=== PATIENT | male | born 1945 | race Caucasian/White ===

== ENCOUNTER 2018-06-02 17:03 | Emergency (ER) | payer MEDICARE, SELFPAY ==
[2018-06-02 17:22] VITALS: BP 113/66; PULSE 88; RESP 16; TEMP 36.8; O2SAT 97; BMI 25.4
--- NOTE | 2018-06-02 17:35 | DI.CT.S_ITS ---
PROCEDURE: CT HEAD/BRAIN WO CON INDICATIONS: confusion TECHNIQUE: Noncontrast 4.5 mm thick angled axial sections acquired from the foramen magnum to the vertex, with coronal and sagittal reformats. For radiation dose reduction, the following was used: automated exposure control, adjustment of mA and/or kV according to patient size. COMPARISON: None. FINDINGS: Image quality: Excellent. CSF spaces: Basal cisterns are patent. No extra-axial fluid collections. The ventricles are symmetric in size and shape. Brain: There is a high density circumscribed mass within the left frontal lobe which measures 3.4 x 3.8 cm in diameter. There is marked surrounding cerebral edema with effacement of the sulci. There is approximately 7 mm rightward midline shift with entrapment of the anterior horn of the left lateral ventricle and early subfalcine herniation. There is likely a smaller more superior 1.3 cm diameter mass lesion within the left frontal lobe as well (series 2, image 21). The basal cisterns are open. No intracranial or intraventricular hemorrhage. No other mass lesions visualized. Skull and face: Calvarium and visualized facial bones appear intact, without suspicious lesions. Sinuses: Visualized sinuses and mastoids are clear. IMPRESSION: 1. 2 left frontal extra cranial mass lesions with extensive cerebral edema, rightward midline shift, subfalcine herniation, and entrapment of the left lateral ventricle. Emergent neurology or neurosurgery consultation recommended. This finding was discussed with Dr. Carbajal at 6:04 PM on 06/02/18. Dictated by: Brunilda Parson M.D. on 06/02/2018 at 18:00 Approved by: Brunilda Parson M.D. on 06/02/2018 at 18:04
[2018-06-02 18:31] LABS: Add Manual Diff / Slide Review NO; Basophils Percent Auto 1.3 % (0-2); Eosinophils Percent Auto 2.5 % (2-4); Hematocrit 38.2 % (41-53); Hemoglobin 12.8 g/dL (13.5-17.5); Lymphocytes Percent Auto 22.6 % (25-40); Mean Corpuscular HGB Conc 33.6 % (30-36); Mean Corpuscular Hemoglobin 31.1 PG (26-34); Mean Corpuscular Volume 92.4 fL (80-100); Monocytes Percent Auto 8.3 % (3-14); Neutrophils Absolute Auto 6900 /uL (3000-5900); Neutrophils Percent Auto 65.3 % (50-75); Platelet Count 290 X10^3/uL (150-400); Red Blood Cell Count 4.13 X10^6/uL (4.5-5.9); Red Cell Distribution Width 13.8 % (11.6-14.8); White Blood Cell Count 10.6 X10^3/uL (4.5-11.0)
--- NOTE | 2018-06-02 18:34 | ED_ITS ---
HPI - Altered Mental Status General Chief Complaint: Altered Mental Status Stated Complaint: MENTAL CONFUSION Time Seen by Provider: 06/02/18 18:28 Source: patient and family History of Present Illness HPI narrative: Patient is a 72-year-old male presenting with increased confusion. states that it has been cycling for a number of years over last 2 weeks progressively gotten worse. It definitely over the last 3 days. She says that he has just been more confused he has not had any fever, Or infectious symptoms. He has some difficulty talking. He has been ambulating and using all extremities okay. He has no complaints. he has a history of melanoma between 4-6 years ago according to the . He was evaluated at [place] last year and had a head CT at that time but she cannot remember what the reason was. MD complaint: altered mental status and confusion Related Data Home Medications Medication Instructions Recorded Confirmed amlodipine [Norvasc] 5 mg PO QDAY #0 07/28/16 06/02/18 chlorhexidine gluconate [Periogard] 15 ml PO #0 07/28/16 cyanocobalamin (vitamin B-12) #0 07/28/16 furosemide 80 mg QDAY #0 07/28/16 06/02/18 lisinopril 40 mg PO QDAY #0 07/28/16 prednisolone acetate 1 drp EYE-LEFT BID 06/02/18 06/02/18 Previous Rx's Medication Instructions Recorded albuterol sulfate [Ventolin HFA] 2 puff INH Q4HP PRN #1 inh 07/28/16 Allergies Allergy/AdvReac Type Severity Reaction Status Date / Time Stkllbt-Kxx-Nir Reductase Allergy Unknown Unverified 11/27/17 12:40 Inhibitor [[id number] REDUCTASE INHIBITOR] Review of Systems Review of Systems All systems reviewed & are unremarkable except as noted in HPI and below Constitutional Denies frequent falls, Denies headache(s) and Denies lethargy Eyes Denies blurry vision and Denies change in vision ENT Ears, Nose, Mouth, and Throat: Denies facial pain, Denies headache(s) and Denies nose pain Cardiovascular Denies chest pain, Denies irregular heart rhythm, Denies lightheadedness, Denies palpitations, Denies dyspnea, Denies dyspnea on exertion and Denies orthopnea Respiratory Denies cough, Denies dyspnea, Denies dyspnea on exertion and Denies wheezing Gastrointestinal Gastrointestinal: Denies abdominal pain, Denies change in bowel habits, Denies diarrhea, Denies nausea and Denies vomiting Musculoskeletal Denies back pain, Denies muscle weakness, Denies numbness and Denies tingling Integumentary/Breasts Denies pruritus, Denies erythema, Denies rash and Denies wounds Neurologic Reports as per HPI, Denies frequent falls, Denies headache(s), Denies lack of coordination, Denies numbness and Denies tingling Endocrine Denies palpitations Allergic/Immunologic Denies wheezing Exam Initial Vital Signs Initial Vital Signs: Vital Signs Temperature 98.2 F 06/02/18 17:22 Pulse Rate 88 06/02/18 17:22 Respiratory Rate 16 06/02/18 17:22 Blood Pressure 113/66 06/02/18 17:22 Pulse Oximetry 97 06/02/18 17:22 Const General: cooperative and frail appearing Nutritional Appearance: well nourished Orientation: alert, awake and confused Eyes Pupils: PERRL, not dilated and not fixed EOM: EOM intact bilaterally Direct ophthalmoscopy: normal light reflex Neck Neck: normal visual inspection and full ROM Chest Chest: normal inspection of the chest Resp Effort & Inspection: normal respiratory effort, able to speak in complete sentences, no respiratory distress and no use of accessory muscles Auscultation: clear to auscultation bilaterally, no rales, no rhonchi and no wheezes Cardio Rate: regular rate Rhythm: regular rhythm Heart Sounds: S1 normal, S2 normal and rub GI Inspection: non-distended Palpation: soft, no hepatosplenomegaly, No guarding, No pulsatile mass and No tender Auscultation: normal bowel sounds Neuro General: alert, awake and oriented x3 Cranial Nerves: CN's II-XI intact bilaterally Cognition: normal cognition Speech: speech normal Motor: muscle tone normal throughout Sensory Exam: no sensory deficits noted Course Orders Ordered: ED Orders 06/02/18 18:21 Complete Blood Count AUTO DIFF Stat Comprehensive Metabolic Panel Stat Partial Thromboplastin Time Stat Prolactin Stat Prothrombin Time INR Stat Thyroid Stimulating Hormone Stat Troponin I Stat Discontinued Medications Dexamethasone (Decadron) 10 mg IV NOW ONE Stop: 06/02/18 18:32 Last Admin: 06/02/18 19:26 Dose: 10 mg Levetiracetam 1,000 mg/ Sodium (Chloride) 110 mls @ 440 mls/hr IV NOW ONE Stop: 06/02/18 19:32 Last Infusion: 06/02/18 21:22 Dose: 0 mls/hr Admin: 06/02/18 20:06 Dose: 440 mls/hr Vital Signs - 8 hr 06/02/18 20:59 06/02/18 22:42 Pulse Rate 69 56 L Respiratory Rate 15 13 Blood Pressure [Left Arm] 124/56 L 141/56 H Pulse Oximetry 96 98 MDM - Altered Mental Status Lab Data Attestation: I reviewed the patient's lab results. Result diagrams: 06/02/18 18:21 06/02/18 18:21 Lab Results 06/02/18 06/02/18 06/02/18 Range/Units 18:21 18:21 18:21 WBC 10.6 (4.5-11.0) X10^3/uL RBC 4.13 L (4.5-5.9) X10^6/uL Hgb 12.8 L (13.5-17.5) g/dL Hct 38.2 L (41-53) % MCV 92.4 (80-100) fL MCH 31.1 (26-34) PG MCHC 33.6 (30-36) % RDW 13.8 (11.6-14.8) % Plt Count 290 (150-400) X10^3/uL Neut % (Auto) 65.3 (50-75) % Lymph % (Auto) 22.6 L (25-40) % Canyon % (Auto) 8.3 (3-14) % Eos % (Auto) 2.5 (2-4) % Baso % (Auto) 1.3 (0-2) % Neut # (Auto) 6900 H (0333-1382) /uL PT Cancelled INR Cancelled APTT (26.4-36.2) SECONDS Sodium Cancelled Potassium Cancelled Chloride Cancelled Carbon Dioxide Cancelled BUN Cancelled Creatinine Cancelled Estimated GFR Cancelled BUN/Creatinine Ratio Cancelled Glucose Cancelled Calcium Cancelled Total Bilirubin (0.2-1.3) mg/dL AST (17-59) IU/L ALT (21-72) IU/L Alkaline Phosphatase (38-126) U/L Troponin I (0.01-0.034) ng/mL Total Protein (6.3-8.2) g/dL Albumin (3.5-5.0) g/dL Globulin (1.7-4.1) g/dL Albumin/Globulin Ratio (1.0-2.8) TSH (0.47-4.68) uIU/mL Prolactin (3.7-17.9) ng/mL 06/02/18 06/02/18 06/02/18 Range/Units 18:21 18:21 18:21 WBC (4.5-11.0) X10^3/uL RBC (4.5-5.9) X10^6/uL Hgb (13.5-17.5) g/dL Hct (41-53) % MCV (80-100) fL MCH (26-34) PG MCHC (30-36) % RDW (11.6-14.8) % Plt Count (150-400) X10^3/uL Neut % (Auto) (50-75) % Lymph % (Auto) (25-40) % Canyon % (Auto) (3-14) % Eos % (Auto) (2-4) % Baso % (Auto) (0-2) % Neut # (Auto) (6767-8838) /uL PT 12.6 INR 1.2 APTT 31 (26.4-36.2) SECONDS Sodium 144 Potassium 3.8 Chloride 105 Carbon Dioxide 29 BUN 25 H Creatinine 1.40 H Estimated GFR 49.5 L BUN/Creatinine Ratio 17.9 Glucose 98 Calcium 8.9 Total Bilirubin 0.4 (0.2-1.3) mg/dL AST 17 (17-59) IU/L ALT 25 (21-72) IU/L Alkaline Phosphatase 61 (38-126) U/L Troponin I < 0.012 (0.01-0.034) ng/mL Total Protein 7.7 (6.3-8.2) g/dL Albumin 4.0 (3.5-5.0) g/dL Globulin 3.7 (1.7-4.1) g/dL Albumin/Globulin Ratio 1.1 (1.0-2.8) TSH (0.47-4.68) uIU/mL Prolactin 10.8 (3.7-17.9) ng/mL 06/02/18 Range/Units 18:21 WBC (4.5-11.0) X10^3/uL RBC (4.5-5.9) X10^6/uL Hgb (13.5-17.5) g/dL Hct (41-53) % MCV (80-100) fL MCH (26-34) PG MCHC (30-36) % RDW (11.6-14.8) % Plt Count (150-400) X10^3/uL Neut % (Auto) (50-75) % Lymph % (Auto) (25-40) % Canyon % (Auto) (3-14) % Eos % (Auto) (2-4) % Baso % (Auto) (0-2) % Neut # (Auto) (5169-5933) /uL PT INR APTT (26.4-36.2) SECONDS Sodium Potassium Chloride Carbon Dioxide BUN Creatinine Estimated GFR BUN/Creatinine Ratio Glucose Calcium Total Bilirubin (0.2-1.3) mg/dL AST (17-59) IU/L ALT (21-72) IU/L Alkaline Phosphatase (38-126) U/L Troponin I (0.01-0.034) ng/mL Total Protein (6.3-8.2) g/dL Albumin (3.5-5.0) g/dL Globulin (1.7-4.1) g/dL Albumin/Globulin Ratio (1.0-2.8) TSH 3.31 (0.47-4.68) uIU/mL Prolactin (3.7-17.9) ng/mL Urine Dip Bedside Urine Glucose Negative Bedside Urine Bilirubin - Negative Bedside Urine Ketone - Negative Urine Specific [place] 1.020 Bedside Urine Occult Blood - Negative Bedside Urine pH 6.0 Bedside Urine Protein - Negative Bedside Urine Urobilinogen - Negative Bedside Urine Nitrite - Negative Bedside Urine Leukocytes - Negative Esterase Imaging Data CT scan - head: Radiologist's impression: PROCEDURE: CT HEAD/BRAIN WO CON INDICATIONS: confusion TECHNIQUE: Noncontrast 4.5 mm thick angled axial sections acquired from the foramen magnum to the vertex, with coronal and sagittal reformats. For radiation dose reduction, the following was used: automated exposure control, adjustment of mA and/or kV according to patient size. COMPARISON: None. FINDINGS: Image quality: Excellent. CSF spaces: Basal cisterns are patent. No extra-axial fluid collections. The ventricles are symmetric in size and shape. Brain: There is a high density circumscribed mass within the left frontal lobe which measures 3.4 x 3.8 cm in diameter. There is marked surrounding cerebral edema with effacement of the sulci. There is approximately 7 mm rightward midline shift with entrapment of the anterior horn of the left lateral ventricle and early subfalcine herniation. There is likely a smaller more superior 1.3 cm diameter mass lesion within the left frontal lobe as well (series 2, image 21). The basal cisterns are open. No intracranial or intraventricular hemorrhage. No other mass lesions visualized. Skull and face: Calvarium and visualized facial bones appear intact, without suspicious lesions. Sinuses: Visualized sinuses and mastoids are clear. IMPRESSION: 1. 2 left frontal extra cranial mass lesions with extensive cerebral edema, rightward midline shift, subfalcine herniation, and entrapment of the left lateral ventricle. Emergent neurology or neurosurgery consultation recommended. This finding was discussed with Dr. Carbajal at 6:04 PM on 06/02/18. Dictated by: Brunilda Parson M.D. on 06/02/2018 at 18:00 Approved by: Brunilda Parson M.D. on 06/02/2018 at 18:04 [facility] Narrative Medical decision making narrative: 7:[address] Beck Neuro surgery, has reviewed CT himself agrees with dexamethasone and Beatris Whittington, apprentice instrument technician at [facility] has been updated patient's symptoms test results come [place] call with Neurosurgery and myself accepts patient for transfer. 10:15 p.m. patient was assigned room about an hour ago. Transport is still 2 hr out and will not arrive to [facility] until 2 or 3:00 a.m.. I have seen evaluated patient and reassessed. He is sleeping easily arousable supervisor chemical strength equal bilaterally. Pupils are equal and reactive. Due to prolonged transport time an early signs of herniation on CT I discussed with transport by airlift. She is agreeable to have airlift insurance. Patient does remain stable at this time. Discharge Plan Departure Patient Disposition: [facility] Clinical Impression: Brain mass Discharge Date/Time: 06/02/18 23:12 Interventions: ED Discharge Assessment Last Done: 06/02/18 23:11 Prescriptions: No Action furosemide 80 MG tablet 80 mg QDAY Qty: 0 RF: 0 lisinopril 40 MG tablet 40 mg PO QDAY Qty: 0 RF: 0 chlorhexidine gluconate [Periogard] 473 ML mouthwash 15 ml PO Qty: 0 RF: 0 cyanocobalamin (vitamin B-12) 1,000 MCG tablet extended release Qty: 0 RF: 0 amlodipine [Norvasc] 5 MG tablet 5 mg PO QDAY Qty: 0 RF: 0 albuterol sulfate [Ventolin HFA] 90 MCG/PUFF HFA aerosol inhaler 2 puff INH Q4HP PRNQty: 1 RF: 0 prednisolone acetate 1 % drops,suspension 1 drp EYE-LEFT BID RF: 0
[2018-06-02 18:44] LABS: INR 1.2 (0.9-1.3); Prothrombin Time 12.6 SECONDS (10.1-12.7)
[2018-06-02 18:46] LABS: PTT Partial Thromboplastin Tim 31 SECONDS (26.4-36.2)
[2018-06-02 18:51] LABS: Alanine Aminotransferase 25 IU/L (21-72); Albumin Globulin Ratio 1.1 (1.0-2.8); Alkaline Phosphatase 61 U/L (38-126); Aspartate Aminotransferase 17 IU/L (17-59); BUN Creatinine Ratio 17.9 (6-22); Bilirubin Total 0.4 mg/dL (0.2-1.3); Blood Urea Nitrogen 25 mg/dL (9-20); Calcium 8.9 mg/dL (8.4-10.2); Carbon Dioxide 29 mmol/L (22-32); Chloride 105 mmol/L (98-107); Estimated Glomerular Filt Rate 49.5 mL/min (>60); Globulin 3.7 g/dL (1.7-4.1); Glucose 98 mg/dL (80-110); HEMOLYSIS < 15 (0-50); Potassium 3.8 mmol/L (3.4-5.1); Sodium 144 mmol/L (137-145); Total Protein 7.7 g/dL (6.3-8.2)
[2018-06-02 19:02] LABS: Troponin I < 0.012 ng/mL (0.01-0.034)
[2018-06-02 19:07] LABS: Prolactin 10.8 ng/mL (3.7-17.9)
[2018-06-02] MEDS: DEXAMETHASONE 10 MG/ML VIAL IV (19:26)
[2018-06-02 19:32] LABS: Thyroid Stimulating Hormone 3.31 uIU/mL (0.47-4.68)
[2018-06-02] MEDS: levETIRAcetam 1,000 MG in SODIUM CHLORIDE 0.9% 100 ML 440 ML IV (20:06)
--- NOTE | 2018-06-02 20:17 | PC.NURSE ---
Pt's came to RN station and stated patient was not opening his left eye. I entered patient's room and he was using his left eye about every third blink. Pt appeared to be uncomfortable, I adjusted lights in the room. pt stated it was better but is still only opening his eye every 3rd blink. Provider Carroll notified.
[2018-06-02 20:59] VITALS: BP 124/56; PULSE 69; RESP 15; O2SAT 96
[2018-06-02 22:42] VITALS: BP 141/56; PULSE 56; RESP 13; O2SAT 98
== END 2018-06-02 23:12 | disposition short-term general hospital (02) ==
PROVIDERS: Emergency Medicine; Emergency Provider Emergency Medicine
DX: G93.9 Disorder of brain, unspecified (principal)
CPT/HCPCS: 36591; 70450; 80053; 81003; 84146; 84443; 84484; 85025; 85610; 85730; 96365; 96375; 99284; 99291; J1100; J1953

== ENCOUNTER 2018-08-19 19:07 | Emergency (ER) | payer MEDICARE, SELFPAY ==
[2018-08-19 19:15] VITALS: BP 149/86; PULSE 78; RESP 20; TEMP 36.5; O2SAT 97
--- NOTE | 2018-08-19 19:22 | ED.WOUNDLAC ---
HPI - Wound/Laceration <LUPE Winston - Last Filed: 08/19/18 22:07> General Chief Complaint: Wound/Laceration Stated Complaint: HIT HEAD AND OPENED SUTURES UP Time Seen by Provider: 08/19/18 19:13 Source: patient Mode of arrival: ambulatory Limitations: no limitations History of Present Illness HPI narrative: 73-year-old male with history of having a brain tumor as everyday smoke here for complaint of a opening of the laceration to the top of his scalp. In May patient had surgery at [facility] to remove a brain tumor. He denies any complications with the surgery site since this timeframe. He reports today he was on [place] he accidentally bumped his head on the top of the ceiling of the boat and caused a a separation of the incision site. He denies any loss of consciousness. He denies any nausea or vomiting. Bleeding is controlled. Related Data Home Medications Medication Instructions Recorded Confirmed amlodipine [Norvasc] 5 mg PO QDAY #0 07/28/16 06/02/18 chlorhexidine gluconate [Periogard] 15 ml PO #0 07/28/16 cyanocobalamin (vitamin B-12) #0 07/28/16 furosemide 80 mg QDAY #0 07/28/16 06/02/18 lisinopril 40 mg PO QDAY #0 07/28/16 prednisolone acetate 1 drp EYE-LEFT BID 06/02/18 06/02/18 Previous Rx's Medication Instructions Recorded albuterol sulfate [Ventolin HFA] 2 puff INH Q4HP PRN #1 inh 07/28/16 Allergies Allergy/AdvReac Type Severity Reaction Status Date / Time Pfdyakt-Rqc-Upq Reductase Allergy Unknown Unverified 11/27/17 12:40 Inhibitor [[id number]-MRN REDUCTASE INHIBITOR] Review of Systems <LUPE Winston - Last Filed: 08/19/18 22:07> Constitutional Denies chills, Denies fever(s), Denies lethargy and Denies weakness Eyes Denies change in vision, Denies eye discharge, Denies irritation and Denies loss of vision ENT Ears, Nose, Mouth, and Throat: Denies change in voice, Denies neck pain and Denies sore throat Cardiovascular Denies chest pain, Denies irregular heart rhythm, Denies lightheadedness, Denies palpitations, Denies dyspnea, Denies dyspnea on exertion and Denies orthopnea Respiratory Denies cough, Denies dyspnea, Denies dyspnea on exertion and Denies wheezing Gastrointestinal Gastrointestinal: Denies abdominal pain, Denies change in bowel habits, Denies diarrhea, Denies nausea and Denies vomiting Genitourinary Denies hematuria, Denies flank pain, Denies urinary incontinence and Denies urinary urgency Musculoskeletal Denies neck pain Integumentary/Breasts Denies pruritus, Denies erythema, Denies rash and Denies wounds Neurologic Denies confusion, Denies loss of vision and Denies weakness Comments: Head injury and lesion to incision site top of scalp Psychiatric Denies anxiety, Denies confusion, Denies depression, Denies homicidal ideation and Denies suicidal ideation Endocrine Denies palpitations Hematologic/Lymphatic Denies easy bruising Allergic/Immunologic Denies wheezing Exam <LUPE Winston - Last Filed: 08/19/18 22:07> Initial Vital Signs Initial Vital Signs: Vital Signs Temperature 97.7 F 08/19/18 19:15 Pulse Rate 78 08/19/18 19:15 Respiratory Rate 20 08/19/18 19:15 Blood Pressure 149/86 H 08/19/18 19:15 Pulse Oximetry 97 08/19/18 19:15 Const General: cooperative and well developed Nutritional Appearance: well nourished Orientation: alert, awake, oriented x3 and not confused [facility] Head: other (2.5 cm laceration to top of scalp along incision site. Scab is in place. Bleeding is controlled. Appears to be superficial wound. No step-offs. No raccoon eyes. No Goins signs.) Mouth: oral mucosae normal and mucous membranes abnormal Eyes Conjunctivae: conjunctivae normal Sclera: sclerae normal Pupils: PERRL (Right eye is a PERRLA. Left pupil does not restrict or dilate not new finding.) EOM: EOM intact bilaterally Neck Neck: normal visual inspection, trachea midline, No lymphadenopathy, No midline deformity and No JVD Lymphatic: No lymphedema Resp Effort & Inspection: normal respiratory effort, able to speak in complete sentences, no respiratory distress and no use of accessory muscles Auscultation: clear to auscultation bilaterally, no rales, no rhonchi and no wheezes Cardio Rate: regular rate Rhythm: regular rhythm Heart Sounds: no click, no gallops, no murmurs and no rubs Pulses: normal peripheral pulses Skin General: no rashes or lesions noted, No jaundice and No petechiae Neuro General: alert, oriented x3, gait normal and no focal motor deficits Speech: speech normal <Lauri Townsend DO - Last Filed: 08/20/18 01:41> Initial Vital Signs Initial Vital Signs: Vital Signs Temperature 97.7 F 08/19/18 19:15 Pulse Rate 78 08/19/18 19:15 Respiratory Rate 20 08/19/18 19:15 Blood Pressure 149/86 H 08/19/18 19:15 Pulse Oximetry 97 08/19/18 19:15 Course <LUPE Winston - Last Filed: 08/19/18 22:07> Vital Signs - 8 hr 08/19/18 19:15 Temperature 97.7 F Pulse Rate 78 Respiratory Rate 20 Blood Pressure 149/86 H Pulse Oximetry 97 <Lauri Townsend DO - Last Filed: 08/20/18 01:41> Vital Signs - 8 hr 08/19/18 19:15 Temperature 97.7 F Pulse Rate 78 Respiratory Rate 20 Blood Pressure 149/86 H Pulse Oximetry 97 MDM - Wound/Laceration <LUPE Winston - Last Filed: 08/19/18 22:07> MDM Narrative Medical decision making narrative: Superficial wound to top of scalp along incision area. Several hours after incident it appears that the area has remained stable with formation of a scab. Steri-Strips are applied to the wound area to help keep closure to the area. He has follow-up with oncology in the next couple of days and will have the area reassessed. For any worsening symptoms return emergency room. Head injury instructions are provided with warning signs. Patient denies being on any blood thinners. Discharge Plan Departure Patient Disposition: Home Clinical Impression: Minor head injury Discharge Date/Time: 08/19/18 19:55 Interventions: ED Discharge Assessment Last Done: 08/19/18 19:55 Instructions: DI for Closed Head Injury Activity Restrictions/Additional Instructions: Laceration to top of scalp appears to be minor and has good scab formation and is not bleeding at this time. Wound was cleansed and dressed with Steri-Strips to help keep the wound edges closed. Follow up with Oncology as directed. Have wound reassessed at that time to ensure is doing well. If any worsening symptoms return to the emergency room. Keep wound area clean and dry. Head injury instructions are provided with warning signs return to the emergency room. Prescriptions: No Action furosemide 80 MG tablet 80 mg QDAY Qty: 0 RF: 0 lisinopril 40 MG tablet 40 mg PO QDAY Qty: 0 RF: 0 chlorhexidine gluconate [Periogard] 473 ML mouthwash 15 ml PO Qty: 0 RF: 0 cyanocobalamin (vitamin B-12) 1,000 MCG tablet extended release Qty: 0 RF: 0 amlodipine [Norvasc] 5 MG tablet 5 mg PO QDAY Qty: 0 RF: 0 albuterol sulfate [Ventolin HFA] 90 MCG/PUFF HFA aerosol inhaler 2 puff INH Q4HP PRNQty: 1 RF: 0 prednisolone acetate 1 % drops,suspension 1 drp EYE-LEFT BID RF: 0 Referrals: [facility] [Provider Group] <Lauri Townsend DO - Last Filed: 08/20/18 01:41> Cosign ED Attending Amanda Attestation: I was immediately available in the department for consultation. Documentation has been reviewed. I agree with assessment and plan.
--- NOTE | 2018-08-19 19:37 | ED_ITS ---
HPI - Wound/Laceration <LUPE Winston - Last Filed: 08/19/18 22:07> General Chief Complaint: Wound/Laceration Stated Complaint: HIT HEAD AND OPENED SUTURES UP Time Seen by Provider: 08/19/18 19:13 Source: patient Mode of arrival: ambulatory Limitations: no limitations History of Present Illness HPI narrative: 73-year-old male with history of having a brain tumor as everyday smoke here for complaint of a opening of the laceration to the top of his scalp. In May patient had surgery at Located within [facility] to remove a brain tumor. He denies any complications with the surgery site since this timeframe. He reports today [place] was on [place] he accidentally bumped his head on the top of the ceiling of the boat and caused a a separation of the incision site. He denies any loss of consciousness. He denies any nausea or vomiting. Bleeding is controlled. Related Data Home Medications Medication Instructions Recorded Confirmed amlodipine [Norvasc] 5 mg PO QDAY #0 07/28/16 06/02/18 chlorhexidine gluconate [Periogard] 15 ml PO #0 07/28/16 cyanocobalamin (vitamin B-12) #0 07/28/16 furosemide 80 mg QDAY #0 07/28/16 06/02/18 lisinopril 40 mg PO QDAY #0 07/28/16 prednisolone acetate 1 drp EYE-LEFT BID 06/02/18 06/02/18 Previous Rx's Medication Instructions Recorded albuterol sulfate [Ventolin HFA] 2 puff INH Q4HP PRN #1 inh 07/28/16 Allergies Allergy/AdvReac Type Severity Reaction Status Date / Time Fcnbvsh-Eez-Rqf Reductase Allergy Unknown Unverified 11/27/17 12:40 Inhibitor [[id number]-HUE-GLF REDUCTASE INHIBITOR] Review of Systems <LUPE Winston - Last Filed: 08/19/18 22:07> Constitutional Denies chills, Denies fever(s), Denies lethargy and Denies weakness Eyes Denies change in vision, Denies eye discharge, Denies irritation and Denies loss of vision ENT Ears, Nose, Mouth, and Throat: Denies change in voice, Denies neck pain and Denies sore throat Cardiovascular Denies chest pain, Denies irregular heart rhythm, Denies lightheadedness, Denies palpitations, Denies dyspnea, Denies dyspnea on exertion and Denies orthopnea Respiratory Denies cough, Denies dyspnea, Denies dyspnea on exertion and Denies wheezing Gastrointestinal Gastrointestinal: Denies abdominal pain, Denies change in bowel habits, Denies diarrhea, Denies nausea and Denies vomiting Genitourinary Denies hematuria, Denies flank pain, Denies urinary incontinence and Denies urinary urgency Musculoskeletal Denies neck pain Integumentary/Breasts Denies pruritus, Denies erythema, Denies rash and Denies wounds Neurologic Denies confusion, Denies loss of vision and Denies weakness Comments: Head injury and lesion to incision site top of scalp Psychiatric Denies anxiety, Denies confusion, Denies depression, Denies homicidal ideation and Denies suicidal ideation Endocrine Denies palpitations Hematologic/Lymphatic Denies easy bruising Allergic/Immunologic Denies wheezing Exam <LUPE Winston - Last Filed: 08/19/18 22:07> Initial Vital Signs Initial Vital Signs: Vital Signs Temperature 97.7 F 08/19/18 19:15 Pulse Rate 78 08/19/18 19:15 Respiratory Rate 20 08/19/18 19:15 Blood Pressure 149/86 H 08/19/18 19:15 Pulse Oximetry 97 08/19/18 19:15 Const General: cooperative and well developed Nutritional Appearance: well nourished Orientation: alert, awake, oriented x3 and not confused [facility] Head: other (2.5 cm laceration to top of scalp along incision site. Scab is in place. Bleeding is controlled. Appears to be superficial wound. No step- offs. No raccoon eyes. No Goins signs.) Mouth: oral mucosae normal and mucous membranes abnormal Eyes Conjunctivae: conjunctivae normal Sclera: sclerae normal Pupils: PERRL (Right eye is a PERRLA. Left pupil does not restrict or dilate not new finding.) EOM: EOM intact bilaterally Neck Neck: normal visual inspection, trachea midline, No lymphadenopathy, No midline deformity and No JVD Lymphatic: No lymphedema Resp Effort & Inspection: normal respiratory effort, able to speak in complete sentences, no respiratory distress and no use of accessory muscles Auscultation: clear to auscultation bilaterally, no rales, no rhonchi and no wheezes Cardio Rate: regular rate Rhythm: regular rhythm Heart Sounds: no click, no gallops, no murmurs and no rubs Pulses: normal peripheral pulses Skin General: no rashes or lesions noted, No jaundice and No petechiae Neuro General: alert, oriented x3, gait normal and no focal motor deficits Speech: speech normal <Lauri Townsend DO - Last Filed: 08/20/18 01:41> Initial Vital Signs Initial Vital Signs: Vital Signs Temperature 97.7 F 08/19/18 19:15 Pulse Rate 78 08/19/18 19:15 Respiratory Rate 20 08/19/18 19:15 Blood Pressure 149/86 H 08/19/18 19:15 Pulse Oximetry 97 08/19/18 19:15 Course <LUPE Winston - Last Filed: 08/19/18 22:07> Vital Signs - 8 hr 08/19/18 19:15 Temperature 97.7 F Pulse Rate 78 Respiratory Rate 20 Blood Pressure 149/86 H Pulse Oximetry 97 <Lauri Townsend DO - Last Filed: 08/20/18 01:41> Vital Signs - 8 hr 08/19/18 19:15 Temperature 97.7 F Pulse Rate 78 Respiratory Rate 20 Blood Pressure 149/86 H Pulse Oximetry 97 MDM - Wound/Laceration <LUPE Winston - Last Filed: 08/19/18 22:07> MDM Narrative Medical decision making narrative: Superficial wound to top of scalp along incision area. Several hours after incident it appears that the area has remained stable with formation of a scab. Steri-Strips are applied to the wound area to help keep closure to the area. He has follow-up with oncology in the next couple of days and will have the area reassessed. For any worsening symptoms return emergency room. Head injury instructions are provided with warning signs. Patient denies being on any blood thinners. Discharge Plan Departure Patient Disposition: Home Clinical Impression: Minor head injury Discharge Date/Time: 08/19/18 19:55 Interventions: ED Discharge Assessment Last Done: 08/19/18 19:55 Instructions: DI for Closed Head Injury Activity Restrictions/Additional Instructions: Laceration to top of scalp appears to be minor and has good scab formation and is not bleeding at this time. Wound was cleansed and dressed with Steri-Strips to help keep the wound edges closed. Follow up with Oncology as directed. Have wound reassessed at that time to ensure is doing well. If any worsening symptoms return to the emergency room. Keep wound area clean and dry. Head injury instructions are provided with warning signs return to the emergency room. Prescriptions: No Action furosemide 80 MG tablet 80 mg QDAY Qty: 0 RF: 0 lisinopril 40 MG tablet 40 mg PO QDAY Qty: 0 RF: 0 chlorhexidine gluconate [Periogard] 473 ML mouthwash 15 ml PO Qty: 0 RF: 0 cyanocobalamin (vitamin B-12) 1,000 MCG tablet extended release Qty: 0 RF: 0 amlodipine [Norvasc] 5 MG tablet 5 mg PO QDAY Qty: 0 RF: 0 albuterol sulfate [Ventolin HFA] 90 MCG/PUFF HFA aerosol inhaler 2 puff INH Q4HP PRNQty: 1 RF: 0 prednisolone acetate 1 % drops,suspension 1 drp EYE-LEFT BID RF: 0 Referrals: [facility] [Provider Group] <Lauri Townsend DO - Last Filed: 08/20/18 01:41> Cosign ED Attending Amanda Attestation: I was immediately available in the department for consultation. Documentation has been reviewed. I agree with assessment and plan.
== END 2018-08-19 19:55 | disposition home or self-care (01) ==
PROVIDERS: Emergency Provider Nurse Practitioner Family
DX: S09.90XA Unspecified injury of head, initial encounter (principal); W22.03XA Walked into furniture, initial encounter
CPT/HCPCS: 99282; 99283

== ENCOUNTER → 2018-08-27 14:52 | Outpatient (CLI) | payer MEDICARE, SELFPAY ==
[2018-08-27 16:30] LABS: TSH w/ Reflex to FT4 3.14 uIU/mL (0.47-4.68)
== END ==
PROVIDERS: Visit Provider Internal Medicine Cardiovascular Disease
DX: I48.91 Unspecified atrial fibrillation (principal); M31.1 Thrombotic microangiopathy; I10 Essential (primary) hypertension
CPT/HCPCS: 36415; 84443